=== PATIENT | female | born 1950 | race Caucasian/White ===

== ENCOUNTER → 2018-08-15 20:12 | Outpatient (CLI) | payer MEDICARE, OTHER, SELFPAY ==
--- NOTE | 2018-08-15 | CYSPIN_PTH ---
PATIENT: RASHAD MACIAS LOC: [facility] U#:[id number] AGE/SX: 75/F ROOM: RE08/15/[address]: Dr. Tej Byrd MD : 1950 BED: DIS: SPEC #: [id number] RECD: 08/15/18 08:03 STATUS: MARKEL MILLA #: [id number] COSMO: 08/15/18 00:[address]: Tej Byrd DEPT: CYTOLOGY RECD BY: Mohan Hernandez Tissues: Urine Procedures: Pap Stain (control) Special Stain Group II Cytospin Fluid HEADER OPERATION: Not noted PRE-OP DIAGNOSIS: Bladder cancer TISSUE SUBMITTED: Urine for cytology DIAGNOSIS CYTOLOGY Urine for cytology (cytospin): Rare mildly atypical urothelial cells noted. See comment. BREN:raheem 08/17/18 COMMENT Clinical correlation and appropriate follow up are necessary. Please make reference to previous specimen ([id number] and [id number]), urine for cytology with diagnosis of negative for malignant cells. CYTOLOGY STUDY Slides are reviewed. CYTOLOGY GROSS Received is 30 ml of yellow cloudy fluid labeled with the patient's name and and designated per the requisition as urine. Submitted for cytology preparation. / 08/16/18 TC:5 CPT: 12849
[2018-08-15 20:15] LABS: Cytology, Body Fluid / CSF SEE PATHOLOGY REPORT
== END ==
PROVIDERS: Referring Provider Urology; Visit Provider Urology
DX: C67.9 Malignant neoplasm of bladder, unspecified (principal)
CPT/HCPCS: 88108; 88313

== ENCOUNTER → 2018-11-15 17:08 | Outpatient (CLI) | payer MEDICARE, OTHER, SELFPAY ==
--- NOTE | 2018-11-15 | CYSPIN_PTH ---
PATIENT: RASHAD MACIAS LOC: [facility] U#:[id number] AGE/SX: 75/F ROOM: RE11/15/[address]: Dr. Tej Byrd MD : 1950 BED: DIS: SPEC #: [id number] RECD: 11/15/18 10:30 STATUS: MARKEL MILLA #: [id number] COSMO: 11/15/18 00:[address]: Tej Byrd DEPT: CYTOLOGY RECD BY: Familia Feng Tissues: Urine Procedures: Pap Stain (control) Special Stain Group II Cytospin Fluid HEADER OPERATION: Not noted PRE-OP DIAGNOSIS: Hematuria TISSUE SUBMITTED: Urine for cytology DIAGNOSIS CYTOLOGY Urine for cytology (cytospin): Negative for malignant cells. SJ:raheem 11/17/18 COMMENT Please make reference to previous specimen ([id number]) urine for cytology with diagnosis of rare mildly atypical urothelial cells noted. CYTOLOGY STUDY Slides are reviewed. CYTOLOGY GROSS Received is 20 ml of light yellow fluid labeled with the patient's name and and designated per the requisition as urine. Submitted for cytology preparation. 11/16/18 TC:4 CPT: 00786
[2018-11-15 17:56] LABS: Bacteria 0 SEEN /hpf (None Seen); Mucous, Urine 0 SEEN /hpf (<or=2+); Red Blood Cells-Urine 0 SEEN /hpf (0-5); Squamous Epithelial Cells - UA 0 SEEN /hpf (5-10); White Blood Cells 0 SEEN /hpf (0-5)
[2018-11-15 18:33] LABS: Color, Urine Yellow (Yellow); Glucose, Dipstick Normal (Normal); Ketone-Dipstick Negative (Negative); Leukocyte Esterase-Dipstick Negative /ul (Negative); Nitrite-Dipstick Negative (Negative); Occult Blood-Urine Negative /ul (Negative); Protein-Dipstick Negative (Negative); Specific Gravity, Urine 1.005 (1.002-1.030); Urine Bilirubin Dipstick Negative (Negative); Urine Clarity Clear (Clear); Urine Urobilinogen Normal (Normal)
[2018-11-16 09:58] LABS: Cytology, Body Fluid / CSF SEE PATHOLOGY REPORT
== END ==
PROVIDERS: Referring Provider Urology; Visit Provider Urology
DX: R31.9 Hematuria, unspecified (principal)
CPT/HCPCS: 81001; 88108; 88313

== ENCOUNTER → 2020-05-14 | Outpatient (CLI) | payer MEDICARE, OTHER, SELFPAY ==
--- NOTE | 2020-05-14 | FLU_PTH ---
PATIENT: RASHAD MACIAS [facility] U#:[id number] AGE/SX: 70/F ROOM: RE05/14/[address]: Dr. Tej Byrd MD : 1950 BED: DIS: 05/14/2020 SPEC #: [id number] RECD: 05/14/20 11:54 STATUS: MARKEL MILLA #: [id number] COSMO: 05/14/20 00:[address]: Tej Byrd DEPT: CYTOLOGY RECD BY: Real Mendieta Tissues: Urine Procedures: Special Stain Group II Cytospin Fluid HEADER OPERATION: Not noted PRE-OP DIAGNOSIS: Malignant neoplasm of anterior wall of bladder TISSUE SUBMITTED: Urine for cytology DIAGNOSIS CYTOLOGY Urine for cytology (cytospin): Negative for malignant cells. Mild acute inflammation. See comment. BREN:raheem 05/16/20 COMMENT Organisms consistent with bacteria are also noted. Please make reference to previous specimens ([id number]) urine for cytology with diagnosis of rare mildly atypical urothelial cells noted and ([id number]) urine for cytology with diagnosis of negative for malignant cells. CYTOLOGY STUDY Slides are reviewed. CYTOLOGY GROSS Received is 60 ml of hazy yellow fluid labeled with the patient's name and and designated per the requisition as urine. Submitted for cytology preparation. / raheem 05/15/20 TC:2 CPT: 54310
== END | disposition home or self-care (01) ==
LOC: LABSPEC 11:27
PROVIDERS: Referring Provider Urology; Visit Provider Urology
DX: C67.3 Malignant neoplasm of anterior wall of bladder (principal)
CPT/HCPCS: 88108; 88305; 88313

== ENCOUNTER 2021-11-10 16:52 | Outpatient (CLI) | payer MEDICARE, OTHER, SELFPAY ==
--- NOTE | 2021-11-10 14:29 | CYSPIN_PTH ---
PATIENT: RASHAD MACIAS LOC: [facility] U#:[id number] AGE/SX: 71/F ROOM: RE11/10/[address]: Dr. Tej Byrd MD : 1950 BED: DIS: 11/10/2021 SPEC #: [id number] RECD: 11/11/21 07:00 STATUS: MARKEL LOYOLA #: [id number] COSMO: 11/10/21 14:[address]: Tej Byrd DEPT: CYTOLOGY RECD BY: Angelina Arndt Tissues: Urine Procedures: Pap Stain (control) Special Stain Group II Cytospin Fluid HEADER OPERATION: Not noted PRE-OP DIAGNOSIS: Malignant neoplasm of bladder TISSUE SUBMITTED: Urine for cytology DIAGNOSIS CYTOLOGY Urine for cytology (cytospin): Negative for malignant cells. Acute inflammation. See comment. BREN:raheem 11/11/2021 COMMENT Numerous crystals are also noted. The specimen predominantly consists of squamous epithelial cells. Clinical correlation and appropriate follow up are necessary. CYTOLOGY STUDY Slides are reviewed. CYTOLOGY GROSS Received is 40 ml of light yellow cloudy fluid labeled with the patient's name and and designated per the requisition as urine. Submitted for cytology preparation. / raheem 11/10/2021 TC:2 CPT: 11795
[2021-11-10 17:19] LABS: Cytology, Body Fluid / CSF SEE PATHOLOGY REPORT
== END 2021-11-10 23:59 | disposition short-term general hospital (02) ==
LOC: LABSPEC 16:55
PROVIDERS: Visit Provider Urology
DX: C67.2 Malignant neoplasm of lateral wall of bladder (principal)
CPT/HCPCS: 88108; 88313